=== PATIENT | male | born 1940 | race Caucasian/White ===

== ENCOUNTER 2021-05-26 05:57 | Observation (INO) | payer MEDICARE, OTHER ==
[2021-05-24 13:47] LABS: BASOPHILS % (AUTO) 0.8 % (0-1); EOSINOPHILS # (AUTO) 0.1 X10'3 (0-0.9); EOSINOPHILS % (AUTO) 2.7 % (0-6); LYMPHOCYTES # (AUTO) 1.3 X10'3 (1.1-4.8); LYMPHOCYTES % (AUTO) 34.7 % (21-51); MEAN CORPUSCULAR HEMOGLOBIN 30.8 PG (27.0-31.0); MEAN CORPUSCULAR HGB CONC 33.1 g/dL (33.0-36.5); MEAN PLATELET VOLUME 9.3 FL (7.4-10.4); MONOCYTES # (AUTO) 0.3 X10'3 (0-0.9); MONOCYTES % (AUTO) 9.4 % (2-12); NEUTROPHILS # (AUTO) 1.9 X10'3 (1.8-7.7); NEUTROPHILS % (AUTO) 52.4 % (42-75); PRE OP HEMATOCRIT 38.2 % (42.0-52.0); PRE OP HEMOGLOBIN 12.7 g/dL (14.0-17.9); PRE OP PLATELET COUNT 206 X10'3 (140-440); RED BLOOD COUNT 4.11 X10'6 (4.70-6.10); RED CELL DISTRIBUTION WIDTH 14.1 % (11.5-14.5)
[2021-05-24 13:56] LABS: PRE OP PROTIME 10.3 SECONDS (9.0-12.0)
[2021-05-24 14:04] LABS: ALKALINE PHOSPHATASE 105 IU/L (46-116); BLOOD UREA NITROGEN 20 MG/DL (7-18); CALCIUM 9.6 MG/DL (8.5-10.1); CHLORIDE 104 MMOL/L (99-107); CREATININE 1.25 MG/DL (0.60-1.10); PRE OP ALT 19 U/L (30-65); PRE OP ANION GAP 7 (8-16); PRE OP AST 19 U/L (10-37); PRE OP BILIRUB, TOTAL 0.3 MG/DL (0.0-1.0); PRE OP GLUCOSE 124 MG/DL (70-104); PRE OP POTASSIUM 3.9 MMOL/L (3.4-5.1); PRE OP SODIUM 141 MMOL/L (135-145); TOTAL CARBON DIOXIDE 29.6 MMOL/L (24-32); eGFR 56 ML/MIN
[2021-05-24 14:12] LABS: HEMOGLOBIN A1C 6.1 % (4.5-6.2)
[2021-05-26] VITALS (26 sets, daily range): BP systolic 126–193; BP diastolic 66–101
[~2021-05-26] VITALS: Ht 175.3 cm; Wt 77.1 kg
[~2021-05-26 05:57] MED LIST: ASPI-845 PO; DOCUMENT DATE & TIME OF BETA-BLOCKER PO ONE; FURO40TA4 PO; LISI40TA13 PO; METF-1203 PO; METO-384 PO; SIMV80TA89 PO; TRAZ150T78 PO; cefazolin/dext.iso 2gm/50ml IV ONE; famotidine 20mg tablet PO ONE; ringers solution, lacted 1,000 ML IV SCH
[2021-05-26] MEDS ORDERED: LIDOcaine 1% 30ml preserv. free vial ONE (07:03)
[2021-05-26] MEDS ORDERED: morphine 4 MG/ML inj SYRINge IV PRN (07:45)
[2021-05-26] MEDS ORDERED: fentaNYL/PF 50MCG/1 ML 2ML syringe IV PRN ×2 (07:45)
[2021-05-26] MEDS ORDERED: morphine 2 MG/ML inj. syringe IV PRN (07:45)
[2021-05-26] MEDS ORDERED: enalaprilat dihydrate 2.5mg/2ml vial IV PRN (07:45)
[2021-05-26] MEDS ORDERED: ondansetron/PF 4mg/2ml inj IV PRN (07:45)
[2021-05-26] MEDS ORDERED: ringers solution, lacted 1,000 ML IV SCH (07:45)
[2021-05-26] MEDS ORDERED: FENTANYL CITRATE/PF 50 MCG/1 ML VIAL ONE (07:59)
[2021-05-26] MEDS ORDERED: MIDAZolam 1 MG/ML 5ML VIAL ONE (08:00)
[2021-05-26] MEDS ORDERED: propofol 10mg/ml 20ml vial IV ONE (08:45)
--- NOTE | 2021-05-26 10:28 | NUR ---
Received from OR via [facility]OS[facility]ITAL BED, accompanied by Anesthesiologist DR SIERRA and report given by Anesthesiolgist. PT PRESENTS WITH PIV 20G RIGHT WRIST, VSS. Addendum: 05/26/21 at 1044 by Navya Fajardo RN, RN Amended: Links added.
[2021-05-26] MEDS ORDERED: Potassium Cl inj 20 MEQ in ringers solution, lacted 1,000 ML IV SCH (10:30)
[2021-05-26] MEDS ORDERED: HYDROcodone/acetaminophen 10/325mg tab PO PRN (10:30)
[2021-05-26] MEDS: labetalol 20mg/4ml (5mg/ml) syringe IV PRN ×3 (11:01→11:27)
[2021-05-26] MEDS: hydrALAZINE 20mg/ml inj. IV PRN ×2 (11:55→12:30)
--- NOTE | 2021-05-26 12:34 | NUR ---
Received from OR via [facility] , accompanied by Anesthesiologist DR HENRIQUEZ and report given by Anesthesiolgist. PT PRESENTS WITH PIV 18G LEFT HAND, DRESSING ON RIGHT FOOT/ANKLE/LOWER LEG CLEAN DRY AND INTACT, VSS. Addendum: 05/26/21 at 1244 by Navya Fajardo RN, RN DOCUMENT ON WRONG PT, PLEASE DISREGARD.
[2021-05-26] MEDS ORDERED: nitroGLYCERIN 0.4mg/hour patch TD ONE (13:05)
[2021-05-26] MEDS ORDERED: hydrALAZINE 20mg/ml inj. IV PRN (13:05)
--- NOTE | 2021-05-26 13:48 | NUR ---
Report called to receiving nurse SHAE LUCERO. Transferred via HOSPITAL BED WITH 2 BAGS OF PT Belongings TO ROOM [id number]. BED N LOW LOCKED POSITIION, VIJAY LIGHT WITHIN REACH. Special Issues communicated to receiving nurse. Addendum: 05/26/21 at 1359 by Navya Fajardo RN RN Amended: Links added.
[2021-05-26] MEDS: ceFAZolin inj. 1,000 MG in dextrose 5%-water 50ml 50 ML IV SCH (17:02)
[2021-05-26] MEDS: potassium 20mEq/D5LR 1,000 ML IV SCH (18:44)
[2021-05-26] MEDS: lisinopril 20mg tablet PO SCH (20:24)
[2021-05-26] MEDS: metFORMIN 500mg tablet PO SCH (20:25)
[2021-05-26] MEDS: metoprolol succinate 25mg (24-HOUR) SR. Tablet PO SCH (20:25)
[2021-05-26] MEDS ORDERED: traZODone 150mg tablet PO SCH (21:00)
[2021-05-26] MEDS ORDERED: atorvastatin 20mg tablet PO SCH (21:00)
[2021-05-27] VITALS: BP 128/80
[2021-05-27] MEDS: potassium 20mEq/D5LR 1,000 ML IV SCH ×2 (02:44→05:16)
[2021-05-27 04:00] VITALS: BP 134/80
[2021-05-27] MEDS: ceFAZolin inj. 1,000 MG in dextrose 5%-water 50ml 50 ML IV SCH (05:16)
[2021-05-27 06:00] VITALS: BP 187/90
[2021-05-27 07:06] LABS: BASOPHILS % (AUTO) 0.4 % (0-1); EOSINOPHILS # (AUTO) 0.1 X10'3 (0-0.9); HEMATOCRIT 36.7 % (42.0-52.0); HEMOGLOBIN 12.4 g/dl (14.0-17.9); LYMPHOCYTES # (AUTO) 1.3 X10'3 (1.1-4.8); LYMPHOCYTES % (AUTO) 21.1 % (21-51); MEAN CORPUSCULAR HEMOGLOBIN 30.9 PG (27.0-31.0); MEAN CORPUSCULAR HGB CONC 33.8 g/dL (33.0-36.5); MEAN CORPUSCULAR VOLUME 91.6 FL (78-98); MEAN PLATELET VOLUME 9.4 FL (7.4-10.4); MONOCYTES # (AUTO) 0.5 X10'3 (0-0.9); MONOCYTES % (AUTO) 7.6 % (2-12); NEUTROPHILS # (AUTO) 4.3 X10'3 (1.8-7.7); NEUTROPHILS % (AUTO) 68.9 % (42-75); PLATELET COUNT 195 X10'3 (140-440); RED BLOOD COUNT 4.01 X10'6 (4.70-6.10); RED CELL DISTRIBUTION WIDTH 14.5 % (11.5-14.5); WHITE BLOOD COUNT 6.3 X10'3 (4.5-11.0)
[2021-05-27] MEDS ORDERED: aspirin 325mg tablet, delayed-release (Ecotrin) PO SCH (08:00)
[2021-05-27] MEDS: metFORMIN 500mg tablet PO SCH (09:00)
[2021-05-27] MEDS: lisinopril 20mg tablet PO SCH (09:03)
[2021-05-27] MEDS: metoprolol succinate 25mg (24-HOUR) SR. Tablet PO SCH (09:04)
[2021-05-27 11:00] VITALS: BP 190/87
[2021-05-27] MEDS ORDERED: hydrALAZINE 20mg/ml inj. IV PRN (11:45)
[2021-05-27 15:00] VITALS: BP 175/75
[2021-05-27] MEDS ORDERED: furosemide 40mg/4ml inj IV ONE (15:15)
[2021-05-28] MEDS ORDERED: furosemide 40mg tablet PO SCH (08:00)
== END 2021-05-27 16:49 | disposition home or self-care (01) ==
LOC: PAS 05:57 → PCU 3S 10:32
PROVIDERS: ADMIT Surgery; ATTEND Surgery
DX: I48.91 Unspecified atrial fibrillation (principal); Z20.822 Contact with and (suspected) exposure to COVID-19; I49.5 Sick sinus syndrome; I44.30 Unspecified atrioventricular block; I11.0 Hypertensive heart disease with heart failure; I50.9 Heart failure, unspecified; E11.9 Type 2 diabetes mellitus without complications; I25.10 Atherosclerotic heart disease of native coronary artery without angina pectoris; J44.9 Chronic obstructive pulmonary disease, unspecified; J93.9 Pneumothorax, unspecified; Z79.899 Other long term (current) drug therapy
CPT/HCPCS: 33208; 36415; 71045; 71046; 76000; 80053; 82948; 83036; 85025; 85610; 85730; 87081; 87635; 93005; 96365; 96375; 96376; C1898; C9803; G0378; J0360; J0690; J1940; J2250; J2704; J3010; J3480; J3490; J7060; J7120; A4215; A4565; A4618; A6258; A7000